=== PATIENT | male | born 1955 | race Caucasian/White ===

== ENCOUNTER 2018-03-17 13:36 | Emergency (ER) | payer BC ==
--- NOTE | 2018-03-17 14:14 | ED Physician Documentation ---
History of Present Illness - Stated complaint Stated Complaint: RECTAL BLEED - Chief complaint Chief Complaint: General - History obtained from History obtained from: Patient, Family - History of Present Illness Timing: Other (1 month) Pain level max: 8 Pain level now: 7 Improved by: nothing Worsened by: sitting, BM - Additonal information Additional information: Patient is a 62-year-old male who presents to the emergency department stating that he has rectal pain for the past month. States that this started after being started on Flomax for BPH. States he had bouts of constipation and now has rectal pain. Has been using lidocaine gel, elevator and Thai ointments without relief. Has noted that he has blood on the paper after wiping. No bleeding otherwise. No fevers. No vomiting. Review of Systems Ten Systems: 10 systems reviewed and negative Constitutional: denies: Fever, Chills Respiratory: denies: Cough GI: reports: Constipation. denies: Abdominal Pain, Nausea, Vomiting, Diarrhea, Hematemesis : denies: Dysuria Skin: denies: Rash Musculoskeletal: denies: Neck pain, Back pain Neurologic: denies: Focal weakness, Numbness, Headache PD PAST MEDICAL HISTORY - Past Medical History Past Medical History: Yes Cardiovascular: Hypertension : Benign prostate hypertrophy - Present Medications Home Medications: Ambulatory Orders Medication Instructions Recorded Confirmed Benazepril HCl 5 mg DAILY 03/17/18 03/17/18 Hydrocortisone Acetate [Proctocort] 30 mg RC Q6H PRN #30 supp.rect 03/17/18 Opium/Belladonna Alkaloids 1 tab RC BID PRN #14 supp.rect 03/17/18 [Belladonna-Opium 16.2-30 Supp] Polyethylene Glycol 3350 [Miralax] 17 gm PO DAILY PRN #1 bottle 03/17/18 Tamsulosin HCl [Flomax] 0.4 mg 03/17/18 - Allergies Allergies/Adverse Reactions: Allergies Allergy/AdvReac Type Severity Reaction Status Date / Time No Known Drug Allergies Allergy Verified 03/17/18 13:54 - Living Situation Living Situation: reports: With family Living Arrangement: reports: At home - Social History Does the pt smoke?: No Does the pt have substance abuse?: No - Family History Family history: reports: Non contributory PD ED PE NORMAL - Vitals Vital signs reviewed: Yes - General General: Alert and oriented X 3, No acute distress, Well developed/nourished - HEENT HEENT: PERRL, Moist mucous membranes - Neck Neck: Supple, no meningeal sign - Cardiac Cardiac: RRR, Strong equal pulses - Respiratory Respiratory: No respiratory distress, Clear bilaterally - Abdomen Abdomen: Soft, Non tender, Non distended - Male Male : Other (Normal external rectal exam, has significant tenderness on digital rectal exam. Has mild swelling to the right superior aspect.) - Back Back: No spinal TTP - Derm Derm: Warm and dry, No rash - Extremities Extremities: No edema - Neuro Neuro: Alert and oriented X 3 - Psych Psych: Normal mood, Normal affect Results - Vitals Vitals: Vital Signs - 24 hr 03/17/18 03/17/18 13:51 15:38 Temperature 36.5 C Heart Rate 61 56 L Respiratory 16 16 Rate Blood Pressure 191/97 H 153/88 H O2 Saturation 97 97 Oxygen O2 Source Room air - Labs Labs: Laboratory Tests 03/17/18 03/17/18 03/17/18 14:19 14:19 14:19 WBC 9.4 RBC 4.97 Hgb 15.1 Hct 44.4 MCV 89.3 MCH 30.4 MCHC 34.1 RDW 13.8 Plt Count 254 MPV 7.5 Neut # (Auto) 5.6 Lymph # (Auto) 2.7 [place] # (Auto) 1.0 Eos # (Auto) 0.1 Baso # (Auto) 0.1 Absolute Nucleated RBC 0.00 Nucleated RBC % 0.0 PT 11.6 INR 1.0 APTT 29.8 Sodium 136 Potassium 4.0 Chloride 100 L Carbon Dioxide 29 Anion Gap 7.0 BUN 17 Creatinine 1.1 Estimated GFR (MDRD) 68 L Glucose 106 H Calcium 9.4 Total Bilirubin 1.5 H AST 26 ALT 29 Alkaline Phosphatase 53 Total Protein 7.7 Albumin 4.3 Globulin 3.4 Albumin/Globulin Ratio 1.3 Lipase 27 Urine Color Urine Clarity Urine pH Ur Specific [place] Urine Protein Urine Glucose (UA) Urine Ketones Urine Occult Blood Urine Nitrite Urine Bilirubin Urine Urobilinogen Ur Leukocyte Esterase Ur Microscopic Review Urine Culture Comments 03/17/18 14:25 WBC RBC Hgb Hct MCV MCH MCHC RDW Plt Count MPV Neut # (Auto) Lymph # (Auto) [place] # (Auto) Eos # (Auto) Baso # (Auto) Absolute Nucleated RBC Nucleated RBC % PT INR APTT Sodium Potassium Chloride Carbon Dioxide Anion Gap BUN Creatinine Estimated GFR (MDRD) Glucose Calcium Total Bilirubin AST ALT Alkaline Phosphatase Total Protein Albumin Globulin Albumin/Globulin Ratio Lipase Urine Color YELLOW Urine Clarity CLEAR Urine pH 7.0 Ur Specific [place] 1.010 Urine Protein NEGATIVE Urine Glucose (UA) NEGATIVE Urine Ketones NEGATIVE Urine Occult Blood NEGATIVE Urine Nitrite NEGATIVE Urine Bilirubin NEGATIVE Urine Urobilinogen 0.2 (NORMAL) Ur Leukocyte Esterase NEGATIVE Ur Microscopic Review NOT INDICATED Urine Culture Comments NOT INDICATED - Rads (name of study) CT pelvis Radiology: Prelim report reviewed, EMP read contemporaneously, See rad report ( No acute abnormality of the abdomen demonstrated. Prostate enlargement. . Mild diffuse bladder wall thickening which may be secondary to chronic outlet obstruction.. ) PD MEDICAL DECISION MAKING - ED course Complexity details: reviewed results, re-evaluated patient, considered differential, d/w patient, d/w family ED course: Patient is a 62-year-old male with rectal pain. Normal external exam but did have swelling internally. No evidence of perirectal abscess on CT. Will treat with B and O suppositories as well as hydrocortisone suppositories. We will have him follow-up with his doctor for further care. Also has a significant prostate enlargement causing what appears to be chronic outlet obstruction from his bladder. Will have him follow-up with his doctor and urology for further care. Patient counseled regarding signs and symptoms for which I believe and urgent re-evaluation would be necessary. Patient with good understanding of and agreement to plan and is comfortable going home at this time This document was made in part using voice recognition software. While efforts are made to proofread this document, sound alike and grammatical errors may occur. - Sepsis Event Vital Signs: Vital Signs - 24 hr 03/17/18 03/17/18 13:51 15:38 Temperature 36.5 C Heart Rate 61 56 L Respiratory 16 16 Rate Blood Pressure 191/97 H 153/88 H O2 Saturation 97 97 Oxygen O2 Source Room air Departure - Departure Disposition: 01 Home, Self Care Clinical Impression: Rectalgia Condition: Good Instructions: ED Hemorrhoids Follow-Up: your,doctor in 1week [Other] Prescriptions: Hydrocortisone Acetate [Proctocort] 30 mg RC Q6H PRN #30 supp.rect PRN Reason: rectal pain Opium/Belladonna Alkaloids [Belladonna-Opium 16.2-30 Supp] 1 tab RC BID PRN #14 supp.rect PRN Reason: rectal pain Polyethylene Glycol 3350 [Miralax] 17 gm PO DAILY PRN #1 bottle PRN Reason: Constipation Comments: You do have a very enlarged prostate that is causing potential chronic urinary obstruction. You should follow-up with urology for further care of this. We will try you on the suppositories at home and see if this helps your swelling and pain. Return if you worsen. Discharge Date/Time: 03/17/18 16:28
[2018-03-17] MEDS ORDERED: IOPAMIDOL-300 100 ML VIAL ONE (14:17)
[2018-03-17 14:22] LABS: BASOPHILS # (AUTO) 0.1 10^3/uL (0.0-0.1); BASOPHILS % (AUTO) 0.6 %; EOSINOPHILS # (AUTO) 0.1 10^3/uL (0.0-0.7); EOSINOPHILS % (AUTO) 1.3 %; HGB - HEMOGLOBIN 15.1 g/dL (14.0-18.0); LYMPHOCYTES # (AUTO) 2.7 10^3/uL (1.5-3.5); LYMPHOCYTES % (AUTO) 29.1 %; MEAN CORPUSCULAR HEMOGLOBIN 30.4 pg (27.0-31.0); MEAN CORPUSCULAR HGB CONC 34.1 g/dL (32.0-36.0); MEAN CORPUSCULAR VOLUME 89.3 fL (80.0-94.0); MEAN PLATELET VOLUME 7.5 fL (7.4-11.4); MONOCYTES % (AUTO) 10.2 %; NEUTROPHILS # (AUTO) 5.6 10^3/uL (1.5-6.6); NEUTROPHILS % (AUTO) 58.8 %; PLT - PLATELET COUNT 254 10^3/uL (130-450); RED BLOOD COUNT 4.97 10^6/uL (4.70-6.10); RED CELL DISTRIBUTION WIDTH 13.8 % (12.0-15.0); WHITE BLOOD COUNT 9.4 x10^3/uL (4.8-10.8)
[2018-03-17 14:32] LABS: PT - PROTHROMBIN TIME 11.6 secs (9.9-12.6)
[2018-03-17 14:35] LABS: BILIRUBIN,URINE NEGATIVE (NEGATIVE); GLUCOSE, URINE (UA) NEGATIVE (NEGATIVE); KETONES,URINE (UA) NEGATIVE (NEGATIVE); LEUKOCYTE ESTERASE, URINE NEGATIVE (NEGATIVE); NITRITE,URINE NEGATIVE (NEGATIVE); OCCULT BLOOD,URINE NEGATIVE (NEGATIVE); PROTEIN,URINE NEGATIVE (NEGATIVE); UROBILINOGEN,URINE 0.2 (NORMAL) E.U./dL (NORMAL)
[2018-03-17 14:35] LABS: ALBUMIN 4.3 g/dL (3.2-5.5); ALBUMIN/GLOBULIN RATIO 1.3 (1.0-2.2); BILIRUBIN,TOTAL 1.5 mg/dL (0.2-1.0); CALCIUM 9.4 mg/dL (8.5-10.3); CREATININE 1.1 mg/dL (0.6-1.2); TOTAL PROTEIN 7.7 g/dL (6.7-8.2)
[2018-03-17 14:36] LABS: CLARITY,URINE CLEAR (CLEAR)
[2018-03-17] MEDS ORDERED: IOPAMIDOL-300 100 ML VIAL IVP ONE (14:52)
[2018-03-17 15:39] VITALS: BP 153/88
--- NOTE | 2018-03-17 15:44 | CT Report ---
Reason: rectal pain, swelling Procedure Date: 03/17/2018 Accession Number: [id number] / [id number] Procedure: CT - Pelvis W/ CPT Code: FULL RESULT: EXAM: CT PELVIS EXAM DATE: 03/17/2018 02:53 PM. CLINICAL HISTORY: Rectal pain, swelling. COMPARISONS: None. TECHNIQUE: Routine helical CT imaging was performed through the pelvis. IV contrast: 100 cc Isovue-300. Enteric contrast: No. Reconstructions: Coronal and sagittal. In accordance with CT protocol optimization, one or more of the following dose reduction techniques were utilized for this exam: automated exposure control, adjustment of mA and/or KV based on patient size, or use of iterative reconstructive technique. FINDINGS: Visualized Abdominal Organs: Normal. Peritoneal Cavity/Bowel: Colonic diverticulosis without evidence of diverticulitis. No free fluid, free air or adenopathy. No masses or acute inflammatory process. The appendix is well visualized and normal. Moderate stool distending the rectum. Pelvic Organs: Substantial prostate enlargement measuring 6.7 x 6.0 x 7.6 cm. Moderate bladder distention with mild diffuse wall thickening which may represent chronic outlet obstruction. No huong mass or stones. Vasculature: Mild calcifications, without aneurysm. Bones: No significant abnormality. Other: None. IMPRESSION: 1. No acute abnormality of the abdomen demonstrated. 2. Prostate enlargement. 3. Mild diffuse bladder wall thickening which may be secondary to chronic outlet obstruction.. RADIA
== END 2018-03-17 16:28 | disposition home or self-care (01) ==
LOC: ED 13:36
DX: K62.89 Other specified diseases of anus and rectum (principal); N40.0 Benign prostatic hyperplasia without lower urinary tract symptoms; I10 Essential (primary) hypertension
CPT/HCPCS: 36415; 72193; 80053; 81003; 83690; 85025; 85610; 85730; 99283; Q9967; 81001; 87086

== ENCOUNTER 2019-06-05 08:00 | Emergency (ER) | payer BC, MEDICARE ==
--- NOTE | 2019-06-05 08:09 | ED Physician Documentation ---
PD HPI ABD PAIN - Stated complaint Stated Complaint: ABD PX - History obtained from History obtained from: Patient - History of Present Illness Timing - onset: How many months ago (2) Timing - duration: Months (2) Timing - details: Intermittant Quality: Cramping, Aching Location: RUQ, Epigastric Radiation: No: Chest, Lower back, Upper back Improved by: No: Eating, BM Worsened by: Eating. No: Breathing, Palpation Associated symptoms: Constipation (firm stool but still regularly). No: Fever, Nausea, Vomiting, Diarrhea Similar symptoms before: No diagnosis Recently seen: Not recently seen Review of Systems Constitutional: denies: Fever, Chills Nose: denies: Rhinorrhea / runny nose, Congestion Throat: denies: Sore throat Cardiac: denies: Chest pain / pressure Respiratory: denies: Cough GI: reports: Abdominal Pain, Constipation. denies: Abdominal Swelling, Nausea, Vomiting, Diarrhea, Bloody / black stool : denies: Dysuria, Frequency Musculoskeletal: denies: Neck pain, Back pain Neurologic: denies: Generalized weakness, Near syncope PD PAST MEDICAL HISTORY - Past Medical History Cardiovascular: Hypertension : Benign prostate hypertrophy - Past Surgical History Past Surgical History: No - Present Medications Home Medications: Ambulatory Orders Medication Instructions Recorded Confirmed Benazepril HCl 5 mg DAILY 03/17/18 03/17/18 Lisinopril 10 mg PO DAILY #30 tablet 06/05/19 Omeprazole 20 mg PO DAILY #40 capsule. 06/05/19 Sucralfate [Carafate] 1 gm PO ACHS #40 tablet 06/05/19 - Allergies Allergies/Adverse Reactions: Allergies Allergy/AdvReac Type Severity Reaction Status Date / Time No Known Drug Allergies Allergy Verified 06/05/19 08:14 - Social History Does the pt smoke?: No Smoking Status: Never smoker Does the pt have substance abuse?: No PD ED PE NORMAL - Vitals Vital signs reviewed: Yes - General General: Alert and oriented X 3, No acute distress, Well developed/nourished - HEENT HEENT: Pharynx benign - Neck Neck: Supple, no meningeal sign, No adenopathy - Cardiac Cardiac: RRR, No murmur - Respiratory Respiratory: Clear bilaterally - Abdomen Abdomen: Normal bowel sounds, Soft, Non distended, No organomegaly, Other (Mildly tender right upper quadrant without any percussion or guarding tenderness.) - Male Male : Deferred - Rectal Rectal: Deferred - Back Back: No CVA TTP - Derm Derm: Normal color, Warm and dry - Neuro Neuro: Alert and oriented X 3, No motor deficit, Normal speech Results - Vitals Vitals: Vital Signs - 24 hr 06/05/19 06/05/19 06/05/19 08:13 10:51 12:25 Temperature 36.5 C 36.7 C Heart Rate 80 56 L 61 Respiratory 20 16 16 Rate Blood Pressure 206/124 H 155/97 H 169/112 H O2 Saturation 97 97 95 Oxygen O2 Source Room air - Labs Labs: Laboratory Tests 06/05/19 06/05/19 06/05/19 08:13 08:35 08:35 WBC 7.6 RBC 5.18 Hgb 15.4 Hct 47.5 MCV 91.7 MCH 29.7 MCHC 32.4 RDW 13.2 Plt Count 238 MPV 10.1 Neut # (Auto) 3.7 Lymph # (Auto) 2.9 [place] # (Auto) 0.7 Eos # (Auto) 0.2 Baso # (Auto) 0.1 Absolute Nucleated RBC 0.00 Nucleated RBC % 0.0 Sodium 139 Potassium 4.0 Chloride 102 Carbon Dioxide 29 Anion Gap 8.0 BUN 16 Creatinine 1.0 Estimated GFR (MDRD) 75 L Glucose 123 H Calcium 9.6 Total Bilirubin 0.8 AST 25 ALT 33 Alkaline Phosphatase 52 Total Protein 7.5 Albumin 4.4 Globulin 3.1 Albumin/Globulin Ratio 1.4 Lipase 31 Urine Color YELLOW Urine Clarity CLEAR Urine pH 7.0 Ur Specific [place] 1.015 Urine Protein NEGATIVE Urine Glucose (UA) NEGATIVE Urine Ketones NEGATIVE Urine Occult Blood NEGATIVE Urine Nitrite NEGATIVE Urine Bilirubin NEGATIVE Urine Urobilinogen 0.2 (NORMAL) Ur Leukocyte Esterase NEGATIVE Ur Microscopic Review NOT INDICATED Urine Culture Comments NOT INDICATED - Rads (name of study) abd U/S Radiology: Prelim report reviewed (GB not well visualized. ), See rad report abd CT Radiology: Prelim report reviewed (no acute process. GB and pancreas normal. ), See rad report PD MEDICAL DECISION MAKING - ED course Complexity details: reviewed results (U/S and CT are normal. Given his persistent pain with eating, I would assume gastritis/duodenitis. ), considered differential (Consider gallbladder versus pancreatic or ulcer as most likely. We will start with blood tests and ultrasound), d/w patient Departure - Departure Disposition: 01 Home, Self Care Clinical Impression: Right upper quadrant abdominal pain Condition: Stable Record reviewed to determine appropriate education?: Yes Instructions: ED Epigastric Pain [facility] Follow-Up: [facility] [Provider Group] [facility] [Provider Group] Prescriptions: Lisinopril 10 mg PO DAILY #30 tablet Omeprazole 20 mg PO DAILY #40 capsule. Sucralfate [Carafate] 1 gm PO ACHS #40 tablet Comments: Start omeprazole acid reducing medicine twice daily for the first 10 days and then 2 daily after that. Add sucralfate to coat the stomach 3-4 times a day. See how much improvement you have over the next several days to week. Continue usual lisinopril. The CT scan did not show any acute abnormality of the gallbladder pancreas or stomach wall. Your symptoms sound suggestive of gastritis or ulcer and we are treating it that way. Follow-up with the new primary care. I gave the number for couple of clinics in [facility]. Follow-up at their first available appointment. Return to the ER if not improving well over the next week or so if you are not able to get an appointment soon. Discharge Date/Time: 06/05/19 12:33
[2019-06-05] MEDS ORDERED: MAG HYDROX/AL HYDROX/SIMETH 30 ML UDC PO STA (08:24)
[2019-06-05] MEDS ORDERED: FAMOTIDINE 20 MG TABLET PO STA (08:24)
[2019-06-05 08:33] LABS: BILIRUBIN,URINE NEGATIVE (NEGATIVE); GLUCOSE, URINE (UA) NEGATIVE (NEGATIVE); KETONES,URINE (UA) NEGATIVE (NEGATIVE); LEUKOCYTE ESTERASE, URINE NEGATIVE (NEGATIVE); NITRITE,URINE NEGATIVE (NEGATIVE); OCCULT BLOOD,URINE NEGATIVE (NEGATIVE); PROTEIN,URINE NEGATIVE (NEGATIVE); UROBILINOGEN,URINE 0.2 (NORMAL) E.U./dL (NORMAL)
[2019-06-05 08:36] LABS: CLARITY,URINE CLEAR (CLEAR)
[2019-06-05 08:55] LABS: ALBUMIN 4.4 g/dL (3.2-5.5); ALBUMIN/GLOBULIN RATIO 1.4 (1.0-2.2); BILIRUBIN,TOTAL 0.8 mg/dL (0.2-1.0); CALCIUM 9.6 mg/dL (8.5-10.3); TOTAL PROTEIN 7.5 g/dL (6.7-8.2)
[2019-06-05 08:56] LABS: BASOPHILS # (AUTO) 0.1 10^3/uL (0.0-0.1); BASOPHILS % (AUTO) 0.7 %; EOSINOPHILS # (AUTO) 0.2 10^3/uL (0.0-0.7); EOSINOPHILS % (AUTO) 2.4 %; HGB - HEMOGLOBIN 15.4 g/dL (14.0-18.0); LYMPHOCYTES # (AUTO) 2.9 10^3/uL (1.5-3.5); LYMPHOCYTES % (AUTO) 38.6 %; MEAN CORPUSCULAR HEMOGLOBIN 29.7 pg (27.0-31.0); MEAN CORPUSCULAR HGB CONC 32.4 g/dL (32.0-36.0); MEAN CORPUSCULAR VOLUME 91.7 fL (80.0-94.0); MEAN PLATELET VOLUME 10.1 fL (7.4-11.4); MONOCYTES # (AUTO) 0.7 10^3/uL (0.0-1.0); MONOCYTES % (AUTO) 9.2 %; NEUTROPHILS # (AUTO) 3.7 10^3/uL (1.5-6.6); NEUTROPHILS % (AUTO) 48.7 %; PLT - PLATELET COUNT 238 10^3/uL (130-450); RED BLOOD COUNT 5.18 10^6/uL (4.70-6.10); RED CELL DISTRIBUTION WIDTH 13.2 % (12.0-15.0); WHITE BLOOD COUNT 7.6 x10^3/uL (4.8-10.8)
--- NOTE | 2019-06-05 10:12 | Ultrasound Report ---
Reason: RUQ abd pain with eating x 2 month Procedure Date: 06/05/2019 Accession Number: [id number] / [id number] Procedure: US - Abdomen Limited CPT Code: Final Report FULL RESULT: EXAM: ABDOMEN ULTRASOUND LIMITED, RUQ EXAM DATE: 06/05/2019 09:53 AM. CLINICAL HISTORY: Right upper quadrant pain, postprandial. COMPARISON: None. TECHNIQUE: Real-time scanning was performed with static images obtained. FINDINGS: Liver: The liver is normal in size measuring 15 cm in length. The echotexture is diffusely increased consistent with fatty infiltration. No solid or cystic mass lesions identified. cm. Main portal vein flow: Hepatopetal. Gallbladder: The gallbladder is not reliably visualized due to obscuration by bowel gas and presumed contraction (recent oral intake). Biliary System: CBD measures 4.3 mm. No intrahepatic or extrahepatic ductal dilatation. Other: Normal right kidney. IMPRESSION: 1. Limited visualization of the gallbladder as described above. No intra-nor extrahepatic ductal dilation. 2. Fatty liver. RADIA
[2019-06-05] MEDS ORDERED: IOVERSOL 320 100 ML VIAL IVP ONE ×2 (10:13→17:12)
--- NOTE | 2019-06-05 11:55 | CT Report ---
Reason: RUQ pain for 2 months Procedure Date: 06/05/2019 Accession Number: [id number] / [id number] Procedure: CT - Abdomen/Pelvis W CPT Code: Final Report FULL RESULT: EXAM: CT ABDOMEN AND PELVIS EXAM DATE: 06/05/2019 11:12 AM. CLINICAL HISTORY: Right upper quadrant pain for 2 months. COMPARISONS: None. TECHNIQUE: Routine helical CT imaging was performed through the abdomen and pelvis. IV contrast: OPTI 320 100ML. Enteric contrast: No. Reconstructions: Coronal and sagittal. In accordance with CT protocol optimization, one or more of the following dose reduction techniques were utilized for this exam: automated exposure control, adjustment of mA and/or KV based on patient size, or use of iterative reconstructive technique. FINDINGS: Lung Bases: Unremarkable. Liver: Normal. No masses. Gallbladder/Bile Ducts: Unremarkable. Spleen: Normal. Pancreas: Normal. Adrenal Glands: Normal. Kidneys: The kidneys enhance symmetrically. 1.8 cm cyst upper pole left kidney. Subcentimeter low-attenuation focus upper pole right kidney, too small to characterize. No hydronephrosis. Peritoneal Cavity/Bowel: Scattered diverticuli of the transverse and descending colon/sigmoid, without evidence of colitis or diverticulitis. Normal appearance of the appendix. No bowel obstruction. There is a minimal hiatal hernia versus diverticulum of the esophagus at the gastroesophageal junction. No abnormalities detected of the stomach or duodenum. The appendix is well visualized and normal. Pelvic Organs: Prominent prostate, measuring 6.9 x 7.3 x 6.5 cm. Urinary bladder appears within normal limits. Vasculature: No aneurysms or other significant abnormality. Bones: No significant abnormality. Other: None. IMPRESSION: Minimal hiatal hernia versus diverticulum of the distal esophagus at the gastroesophageal junction. No bowel obstruction. No evidence of colitis or diverticulitis. Enlarged prostate. RADIA
[2019-06-05 12:26] VITALS: BP 169/112
== END 2019-06-05 12:33 | disposition home or self-care (01) ==
LOC: ED 08:00
DX: R10.11 Right upper quadrant pain (principal); I10 Essential (primary) hypertension
CPT/HCPCS: 36415; 74177; 76705; 80053; 81003; 83690; 85025; 99284; A9270; Q9967; 81001; 87086

== ENCOUNTER 2021-02-18 11:36 | Emergency (ER) | payer MEDICARE ==
[2021-02-18 12:33] LABS: BILIRUBIN,URINE NEGATIVE (NEGATIVE); GLUCOSE, URINE (UA) NEGATIVE (NEGATIVE); KETONES,URINE (UA) NEGATIVE (NEGATIVE); LEUKOCYTE ESTERASE, URINE LARGE (NEGATIVE); NITRITE,URINE NEGATIVE (NEGATIVE); OCCULT BLOOD,URINE SMALL (NEGATIVE); PH,URINE 6.5 PH (5.0-7.5); PROTEIN,URINE NEGATIVE (NEGATIVE); UROBILINOGEN,URINE 0.2 (NORMAL) E.U./dL (NORMAL)
[2021-02-18 12:35] LABS: CLARITY,URINE CLOUDY (CLEAR)
[2021-02-18 12:47] LABS: BACTERIA,URINE Few /HPF (None Seen); RBC,URINE 0-5 /HPF (0-5); SQUAMOUS EPITHELIAL CELL,UR RARE Squamous (<= Few); WBC,URINE >25 /HPF (0-3)
[2021-02-18] MEDS ORDERED: cephALEXin 250 MG CAPSULE PO STA (12:48)
[2021-02-18] MEDS ORDERED: PHENAZOPYRIDINE 100 MG TABLET PO STA (12:48)
--- NOTE | 2021-02-18 12:50 | ED Physician Documentation ---
PD HPI MALE - Stated complaint Stated Complaint: MALE - Chief complaint Chief Complaint: UTI - History obtained from History obtained from: Patient - History of Present Illness Timing - onset: How many days ago (4) Timing - details: Gradual onset, Still present, Waxing and waning Associated symptoms: Dysuria, Urinary frequency. No: Genital sore / lesion, Testiclar pain, Back pain Similar symptoms before: Has not had sx before Recently seen: Not recently seen Review of Systems Constitutional: denies: Fever, Chills GI: denies: Abdominal Pain, Nausea, Vomiting Musculoskeletal: denies: Back pain PD PAST MEDICAL HISTORY - Past Medical History Past Medical History: Yes Cardiovascular: Hypertension Neuro: CVA : Benign prostate hypertrophy - Past Surgical History Past Surgical History: No - Present Medications Home Medications: Ambulatory Orders Medication Instructions Recorded Confirmed Benazepril HCl 10 mg PO DAILY 03/17/18 02/18/21 Cholecalciferol (Vitamin D3) 1 cap PO DAILY 02/18/21 02/18/21 [Vitamin D3] Multivitamin 1 tab PO DAILY 02/18/21 02/18/21 Phenazopyridine HCl [Pyridium] 100 mg PO TID PRN #9 tablet 02/18/21 Tamsulosin HCl [Flomax] 0.4 mg PO DAILY PM 02/18/21 02/18/21 cephALEXin [Keflex] 500 mg PO TID #20 cap 02/18/21 - Allergies Allergies/Adverse Reactions: Allergies Allergy/AdvReac Type Severity Reaction Status Date / Time No Known Drug Allergies Allergy Verified 02/18/21 11:57 - Social History Does the pt smoke?: No Smoking Status: Never smoker Does the pt drink ETOH?: No Does the pt have substance abuse?: No PD ED PE NORMAL - Vitals Vital signs reviewed: Yes - General General: Alert and oriented X 3, No acute distress, Well developed/nourished - Abdomen Abdomen: Soft, Non tender - Male Male : Deferred - Back Back: No CVA TTP - Derm Derm: Normal color, Warm and dry Results - Vitals Vitals: Oxygen O2 Source Room air - Labs Labs: Microbiology 02/18/21 11:52 Urine Culture - Preliminary Urine,Clean Catch CULTURE IN PROGRESS. RESULTS TO FOLLOW. Laboratory Tests 02/18/21 11:52 Urine Color YELLOW Urine Clarity CLOUDY Urine pH 6.5 Ur Specific [place] 1.020 Urine Protein NEGATIVE Urine Glucose (UA) NEGATIVE Urine Ketones NEGATIVE Urine Occult Blood SMALL H Urine Nitrite NEGATIVE Urine Bilirubin NEGATIVE Urine Urobilinogen 0.2 (NORMAL) Ur Leukocyte Esterase LARGE H Urine RBC 0-5 Urine WBC >25 H Ur Squamous Epith Cells RARE Squamous Urine Bacteria Few Ur Microscopic Review INDICATED Urine Culture Comments INDICATED PD MEDICAL DECISION MAKING - ED course Complexity details: considered differential (symptoms and UA c/w UTI. ), d/w patient Departure - Departure Disposition: 01 Home, Self Care Clinical Impression: Dysuria UTI (urinary tract infection) Qualifiers: Urinary tract infection type: acute cystitis Hematuria presence: without hematuria Qualified Code(s): N30.00 - Acute cystitis without hematuria Condition: Stable Record reviewed to determine appropriate education?: Yes Instructions: ED UTI Cystitis Male Follow-Up: MANDY BOLANOS MD [Primary Care Provider] - Prescriptions: cephALEXin [Keflex] 500 mg PO TID #20 cap Phenazopyridine HCl [Pyridium] 100 mg PO TID PRN #9 tablet PRN Reason: Abdominal Pain Comments: Your urine does show signs of infection and correlates with your symptoms. We will treat you with cephalexin antibiotic as directed. Short-term you can also use the phenazopyridine to help with urinary discomfort. I will turn your urine slightly orange. The urine culture should result in a couple of days and will call you if we need to change the antibiotic choice based off of that. This is relatively uncommon. Recheck if not improved well over the next few days. Discharge Date/Time: 02/18/21 13:22
[2021-02-18 13:22] VITALS: BP 175/100
== END 2021-02-18 13:22 | disposition home or self-care (01) ==
LOC: ED 11:36
DX: N30.00 Acute cystitis without hematuria (principal); I10 Essential (primary) hypertension
CPT/HCPCS: 81001; 87086; 99283; A9270; 81003

== ENCOUNTER 2022-07-28 10:39 | Emergency (ER) | payer MEDICARE ==
[2022-07-28 11:04] VITALS: BP 182/90
--- NOTE | 2022-07-28 12:19 | ED Physician Documentation ---
PD HPI MALE - Stated complaint Stated Complaint: MALE - Chief complaint Chief Complaint: General - History obtained from History obtained from: Patient - History of Present Illness Timing - duration: Days (10) Timing - details: Gradual onset Associated symptoms: Unable to urinate (He was traveling in [place] and had not been taking his Flomax consistently. He was unable to urinate and went to an ER and had a Osuna catheter placed and diagnosed with a UTI, treated with Cipro. He tried to get an appoint with his urologist but no appointments until . Here for removal.) Review of Systems Constitutional: denies: Fever, Chills Musculoskeletal: denies: Back pain PD PAST MEDICAL HISTORY - Past Medical History Cardiovascular: Hypertension Neuro: CVA : Benign prostate hypertrophy, Retention - Past Surgical History Past Surgical History: No - Present Medications Home Medications: Ambulatory Orders Medication Instructions Recorded Confirmed Benazepril HCl 10 mg PO DAILY 03/17/18 02/18/21 Cholecalciferol (Vitamin D3) 1 cap PO DAILY 02/18/21 02/18/21 [Vitamin D3] Multivitamin 1 tab PO DAILY 02/18/21 02/18/21 Phenazopyridine HCl [Pyridium] 100 mg PO TID PRN #9 tablet 02/18/21 Tamsulosin HCl [Flomax] 0.4 mg PO DAILY PM 02/18/21 02/18/21 cephALEXin [Keflex] 500 mg PO TID #20 cap 02/18/21 - Allergies Allergies/Adverse Reactions: Allergies Allergy/AdvReac Type Severity Reaction Status Date / Time No Known Drug Allergies Allergy Verified 07/28/22 11:03 - Social History Does the pt smoke?: No Smoking Status: Never smoker Does the pt drink ETOH?: No Does the pt have substance abuse?: No - POLST Patient has POLST: No PD ED PE NORMAL - Vitals Vital signs reviewed: Yes - General General: Alert and oriented X 3, No acute distress, Well developed/nourished - Abdomen Abdomen: Soft, Non tender - Male Male : Other (osuna inplace and draining well. ) - Back Back: No CVA TTP Results - Vitals Vitals: Vital Signs - 24 hr 07/28/22 11:00 Temperature 36.1 C L Heart Rate 72 Respiratory 16 Rate Blood Pressure 182/90 H O2 Saturation 99 Oxygen O2 Source Room air PD Medical Decision Making - ED course Complexity details: considered differential (had UTI and urinary retention while traveling in [place] 10 days ago. Restarted Flomax and took abx for uTI. He would like to have osuna out. It is reasonable to expect that conditions could be improved with the above that he would be able to have regular voiding at this point. to return if can't urinate), d/w patient Departure - Departure Disposition: 01 Home, Self Care Clinical Impression: Encounter for Osuna catheter removal, BPH (benign prostatic hyperplasia) Condition: Stable Record reviewed to determine appropriate education?: Yes Follow-Up: MANDY BOLANOS MD [Primary Care Provider] - Comments: Continue with your Flomax and staying well-hydrated. Continue other usual medicines. Return to the ER if you are unable to urinate adequately later in the day or over the next few days. Expect to have a little bit of hesitancy and some dribbling due to the recent catheter in place. Follow-up with your urologist as planned or scheduled. Return to the ER if needed. Discharge Date/Time: 07/28/22 12:41
== END 2022-07-28 12:41 | disposition home or self-care (01) ==
LOC: ED 10:39
DX: Z46.6 Encounter for fitting and adjustment of urinary device (principal); I10 Essential (primary) hypertension
CPT/HCPCS: 99281; 99282

== ENCOUNTER 2022-07-28 19:49 | Emergency (ER) | payer MEDICARE ==
--- NOTE | 2022-07-28 20:30 | ED Physician Documentation ---
History of Present Illness - Stated complaint Stated Complaint: MALE - Chief complaint Chief Complaint: Abd Pain - History obtained from History obtained from: Patient, Family - History of Present Illness Timing: Today Pain level max: 5 Pain level now: 5 - Additonal information Additional information: 67-year-old male was seen here earlier today for catheter removal after having urinary retention. The catheter was removed, he has not been able to urinate since. He is here requesting the catheter be placed again. PD PAST MEDICAL HISTORY - Past Medical History Past Medical History: Yes Cardiovascular: Hypertension Neuro: CVA : Benign prostate hypertrophy, Retention - Past Surgical History Past Surgical History: No - Present Medications Home Medications: Ambulatory Orders Medication Instructions Recorded Confirmed Benazepril HCl 10 mg PO DAILY 03/17/18 02/18/21 Cholecalciferol (Vitamin D3) 1 cap PO DAILY 02/18/21 02/18/21 [Vitamin D3] Multivitamin 1 tab PO DAILY 02/18/21 02/18/21 Phenazopyridine HCl [Pyridium] 100 mg PO TID PRN #9 tablet 02/18/21 Tamsulosin HCl [Flomax] 0.4 mg PO DAILY PM 02/18/21 02/18/21 cephALEXin [Keflex] 500 mg PO TID #20 cap 02/18/21 - Allergies Allergies/Adverse Reactions: Allergies Allergy/AdvReac Type Severity Reaction Status Date / Time No Known Drug Allergies Allergy Verified 07/28/22 11:03 - Social History Does the pt smoke?: No Smoking Status: Never smoker Does the pt drink ETOH?: No Does the pt have substance abuse?: No - Immunizations Immunizations are current?: Yes - POLST Patient has POLST: No PD ED PE NORMAL - Vitals Vital signs reviewed: Yes - General General: Alert and oriented X 3 - HEENT HEENT: Moist mucous membranes - Cardiac Cardiac: RRR - Respiratory Respiratory: No respiratory distress, Clear bilaterally - Abdomen Abdomen: Soft, Non tender, Non distended - Derm Derm: Warm and dry - Neuro Neuro: Alert and oriented X 3 Results - Vitals Vitals: Vital Signs - 24 hr 07/28/22 19:53 Temperature 36 C L Heart Rate 95 Respiratory 16 Rate O2 Saturation 100 Oxygen O2 Source Room air PD Medical Decision Making - ED course Complexity details: considered differential, d/w patient, d/w family ED course: Lynn catheter was placed, 750 mL of urine was drained. We will leave the Lynn catheter in place today and he will follow-up with his urologist for further care. No emergency medical condition at this time. Patient counseled regarding signs and symptoms for which I believe and urgent re-evaluation would be necessary. Patient with good understanding of and agreement to plan and is comfortable going home at this time This document was made in part using voice recognition software. While efforts are made to proofread this document, sound alike and grammatical errors may occur. Departure - Departure Disposition: 01 Home, Self Care Clinical Impression: Acute urinary retention Condition: Good Instructions: ED Catheter Care Lynn Follow-Up: Dorothy Valadez MD [Primary Care Provider] - [facility] [Provider Group] [facility] [Provider Group] Sohail Vargas MD [Physician No Access] - Sathya Florez MD [Physician No Access] - Comments: Your catheter was placed back in today and approximately 750 mL of urine were drained. Please follow-up with a urologist for further care. Return if you worsen Discharge Date/Time: 07/28/22 20:35
== END 2022-07-28 20:35 | disposition home or self-care (01) ==
LOC: ED 19:49
DX: Z46.6 Encounter for fitting and adjustment of urinary device (principal); R33.9 Retention of urine, unspecified; I10 Essential (primary) hypertension
CPT/HCPCS: 99281; 99282; 99283

== ENCOUNTER 2022-09-23 08:00 | Outpatient (CLI) | payer MEDICARE ==
[2022-09-23 18:41] LABS: BILIRUBIN,URINE NEGATIVE (NEGATIVE); GLUCOSE, URINE (UA) NEGATIVE (NEGATIVE); KETONES,URINE (UA) NEGATIVE (NEGATIVE); LEUKOCYTE ESTERASE, URINE NEGATIVE (NEGATIVE); NITRITE,URINE NEGATIVE (NEGATIVE); OCCULT BLOOD,URINE NEGATIVE (NEGATIVE); PH,URINE 7.5 PH (5.0-7.5); PROTEIN,URINE NEGATIVE (NEGATIVE); UROBILINOGEN,URINE 0.2 (NORMAL) E.U./dL (NORMAL)
[2022-09-23 18:53] LABS: CLARITY,URINE CLEAR (CLEAR)
[2022-09-23 19:37] LABS: AMORPHOUS SEDIMENT,UR Moderate /LPF; BACTERIA,URINE Rare /HPF (None Seen); RBC,URINE 0-5 /HPF (0-5); SQUAMOUS EPITHELIAL CELL,UR NONE SEEN (<= Few)
== END 2022-09-23 23:59 | disposition home or self-care (01) ==
LOC: MERGE 08:00 → LAB.N 08:00
PROVIDERS: ATTEND Physician Assistant
DX: R30.0 Dysuria (principal)
CPT/HCPCS: 81001; 87086

== ENCOUNTER 2022-09-27 08:27 | Outpatient (CLI) | payer MEDICARE ==
[2022-09-27 08:46] LABS: BASOPHILS # (AUTO) 0.1 10^3/uL (0.0-0.1); BASOPHILS % (AUTO) 0.8 %; EOSINOPHILS # (AUTO) 0.2 10^3/uL (0.0-0.7); HCT - HEMATOCRIT 48.1 % (42.0-52.0); HGB - HEMOGLOBIN 15.6 g/dL (14.0-18.0); LYMPHOCYTES # (AUTO) 2.3 10^3/uL (1.5-3.5); LYMPHOCYTES % (AUTO) 34.2 %; MEAN CORPUSCULAR HEMOGLOBIN 29.9 pg (27.0-31.0); MEAN CORPUSCULAR HGB CONC 32.4 g/dL (32.0-36.0); MEAN CORPUSCULAR VOLUME 92.1 fL (80.0-94.0); MEAN PLATELET VOLUME 9.4 fL (7.4-11.4); MONOCYTES # (AUTO) 0.6 10^3/uL (0.0-1.0); MONOCYTES % (AUTO) 8.5 %; NEUTROPHILS # (AUTO) 3.5 10^3/uL (1.5-6.6); NEUTROPHILS % (AUTO) 53.2 %; PLT - PLATELET COUNT 281 10^3/uL (130-450); RED BLOOD COUNT 5.22 10^6/uL (4.70-6.10); RED CELL DISTRIBUTION WIDTH 13.5 % (12.0-15.0); WHITE BLOOD COUNT 6.6 x10^3/uL (4.8-10.8)
[2022-09-27 08:59] LABS: ALBUMIN/GLOBULIN RATIO 1.3 (1.0-2.2); ALKALINE PHOSPHATASE 50 IU/L (42-121); ALT ALANINE AMINOTRANSFERASE 20 IU/L (10-60); AST ASPARTATE AMINOTRANSFERASE 16 IU/L (10-42); BILIRUBIN,TOTAL 0.7 mg/dL (0.2-1.0); BUN - BLOOD UREA NITROGEN 23 mg/dL (6-20); CALCIUM 9.2 mg/dL (8.5-10.3); CARBON DIOXIDE - CO2 29 mmol/L (21-32); CHLORIDE 103 mmol/L (101-111); CHOL/HDL RATIO 4.6 (<5.0); CHOLESTEROL 211 mg/dL; CREATININE 0.9 mg/dL (0.6-1.2); GFR - MDRD 84 (>89); GLUCOSE 118 mg/dL (70-100); HDL CHOLESTEROL 46 mg/dL; LDL CHOLESTEROL,CALCULATED 147 mg/dL; LDL/HDL RATIO 3.2 (<3.6); POTASSIUM 4.1 mmol/L (3.5-5.0); SODIUM 140 mmol/L (135-145); TOTAL PROTEIN 7.2 g/dL (6.7-8.2); TRIGLYCERIDES 88 mg/dL; VLDL CHOLESTEROL 18 mg/dL
[2022-09-27 09:10] LABS: THYROID STIMULATING HORMONE 2.37 uIU/mL (0.34-5.60)
[2022-09-27 10:43] LABS: ESTIMATED AVERAGE GLUCOSE 111 mg/dL (70-100); HEMOGLOBIN A1c% 5.5 % (4.27-6.07)
== END 2022-09-27 08:28 | disposition home or self-care (01) ==
LOC: LAB 08:27
PROVIDERS: ATTEND Physician Assistant
DX: I10 Essential (primary) hypertension (principal); E78.5 Hyperlipidemia, unspecified; Z12.5 Encounter for screening for malignant neoplasm of prostate; R73.01 Impaired fasting glucose
CPT/HCPCS: 36415; 80053; 80061; 83036; 84443; 85025; G0103; 83721; 84153

== ENCOUNTER 2024-02-08 20:36 | Outpatient (CLI) | payer MEDICARE ==
[2024-02-08 20:57] LABS: BASOPHILS # (AUTO) 0.1 10^3/uL (0.0-0.1); BASOPHILS % (AUTO) 0.6 %; EOSINOPHILS # (AUTO) 0.2 10^3/uL (0.0-0.7); EOSINOPHILS % (AUTO) 2.4 %; HCT - HEMATOCRIT 48.6 % (42.0-52.0); HGB - HEMOGLOBIN 16.1 g/dL (14.0-18.0); LYMPHOCYTES # (AUTO) 3.1 10^3/uL (1.5-3.5); LYMPHOCYTES % (AUTO) 30.1 %; MEAN CORPUSCULAR HGB CONC 33.1 g/dL (32.0-36.0); MEAN CORPUSCULAR VOLUME 90.5 fL (80.0-94.0); MEAN PLATELET VOLUME 9.4 fL (7.4-11.4); MONOCYTES # (AUTO) 0.8 10^3/uL (0.0-1.0); MONOCYTES % (AUTO) 7.8 %; NEUTROPHILS % (AUTO) 58.9 %; PLT - PLATELET COUNT 260 10^3/uL (130-450); RED BLOOD COUNT 5.37 10^6/uL (4.70-6.10); WHITE BLOOD COUNT 10.2 x10^3/uL (4.8-10.8)
[2024-02-08 21:11] LABS: ALBUMIN 4.6 g/dL (3.2-5.5); ALBUMIN/GLOBULIN RATIO 1.6 (1.0-2.2); ALKALINE PHOSPHATASE 49 IU/L (42-121); ALT ALANINE AMINOTRANSFERASE 23 IU/L (10-60); AST ASPARTATE AMINOTRANSFERASE 20 IU/L (10-42); BILIRUBIN,TOTAL 1.1 mg/dL (0.2-1.0); BUN - BLOOD UREA NITROGEN 16 mg/dL (6-20); CALCIUM 10.2 mg/dL (8.5-10.3); CARBON DIOXIDE - CO2 32 mmol/L (21-32); CHLORIDE 99 mmol/L (101-111); CHOLESTEROL 218 mg/dL; GFR - MDRD 74 (>89); GLUCOSE 114 mg/dL (74-104); HDL CHOLESTEROL 44 mg/dL; LDL CHOLESTEROL,CALCULATED 147 mg/dL; LDL/HDL RATIO 3.3 (<3.6); POTASSIUM 3.8 mmol/L (3.5-4.5); SODIUM 135 mmol/L (135-145); TOTAL PROTEIN 7.4 g/dL (6.4-8.9); TRIGLYCERIDES 135 mg/dL; VLDL CHOLESTEROL 27 mg/dL
[2024-02-08 21:26] LABS: THYROID STIMULATING HORMONE 3.24 uIU/mL (0.34-5.60)
[2024-02-08 21:38] LABS: ESTIMATED AVERAGE GLUCOSE 114 mg/dL (70-100); HEMOGLOBIN A1c% 5.6 % (4.27-6.07)
== END 2024-02-08 20:37 | disposition home or self-care (01) ==
LOC: LAB 20:36
PROVIDERS: ATTEND Nurse Practitioner Gerontology
DX: Z00.00 Encounter for general adult medical examination without abnormal findings (principal)
CPT/HCPCS: 36415; 80053; 80061; 82306; 83036; 83721; 83880; 84153; 84443; 85025